=== PATIENT | female | born 1975 | race Caucasian/White ===

== ENCOUNTER → 2019-03-21 | Outpatient (CLI) | payer OTHER ==
[2015-04-19 14:00] VITALS: BP 113/89
[~2019-03-21] MED LIST: ALPR0.5T PO; AZAT50TA20 PO; MESA1.2T PO; MONT10TA6 PO; [UNRECOGNIZED DRUG - OTHER]
--- NOTE | 2019-03-21 14:46 | RAD ---
DATE: 03/21/2019 EXAM: MAMMO ABEL SCREENING BILATERAL HISTORY: Routine screening COMPARISON: None. This exam is the baseline. This study was interpreted with the benefit of Computerized Aided Detection (CAD). Breast Density: DENSE The breast parenchyma is dense, which could reduce the sensitivity of mammography. Breast parenchyma level density D. FINDINGS: Nodular asymmetry involving the posterior right MLO tomosynthesis images approximately 6.7 cm from nipple is present and this measures 0.7 cm in diameter. It is not well delineated on the standard MLO projection. Asymmetry which is nodular in appearance involves the left axillary level on the MLO projection and this measures up to 0 point for 5 cm diameter. It is seen on tomosynthesis imaging but not definitely on the standard MLO view. It may represent intramammary lymph node. IMPRESSION: Bilateral nodular asymmetry. Spot compression imaging bilaterally is recommended in the MLO projections with tomosynthesis. Ultrasound bilaterally may be needed. BI-RADS CATEGORY: 0 INCOMPLETE: NEEDS ADDITIONAL IMAGING EVALUATION AND/OR PRIOR MAMMOGRAMS FOR COMPARISON. RECOMMENDED FOLLOW-UP: ADD ADDITIONAL IMAGING PQRS compliance statement: Patient information was entered into a reminder system with a target due date of now for the next mammogram. Mammography is a sensitive method for finding small breast cancers, but it does not detect them all and is not a substitute for careful clinical examination. A negative mammogram does not negate a clinically suspicious finding and should not result in delay in biopsying a clinically suspicious abnormality. "Our facility is accredited by the [employer] Mammography [employer]."
== END | disposition home or self-care (01) ==
LOC: PMG 13:16
PROVIDERS: ATTEND Physician Assistant Medical
DX: Z12.31 Encounter for screening mammogram for malignant neoplasm of breast (principal); N64.89 Other specified disorders of breast
CPT/HCPCS: 77063; 77067

== ENCOUNTER → 2019-03-25 | Outpatient (CLI) | payer OTHER ==
[2015-04-19 14:00] VITALS: BP 113/89
--- NOTE | 2019-03-25 15:47 | RAD ---
DATE: 03/25/2019 EXAM: DIGITAL DIAGNOSTIC BILATERAL, BREAST BILATERAL HISTORY: Suspicious screening study COMPARISON: 03/21/2019 This study was interpreted with the benefit of Computerized Aided Detection (CAD). Breast Density: DENSE The breast parenchyma is dense, which could reduce the sensitivity of mammography. Breast parenchyma level density D. FINDINGS: Additional spot compression oblique views of both breasts were obtained and correlated with the screening exam. This patient's fibroglandular tissues are quite dense and heterogeneous isn't a multinodular pattern. Possible small nodules in the superior aspects of both breasts noted on the screening exam are again visualized on the spot compression views, however, overlying dense fibroglandular tissues continue to partially obscure these nodules. Bilateral breast ultrasound, 03/25/2019: A targeted ultrasound exam of the superior aspects of both breasts was performed. The fibroglandular tissues are heterogeneous. On the right, at the 9:00 location, approximately 7 cm from the nipple there is a small septated cyst versus cyst cluster. It measures 10 x 7 x 5 mm. No other sonographic abnormality is seen superiorly on the right. On the left, at the 9:00 location approximately 4 cm from the nipple, a 5 x 7 mm anechoic nodule is seen with faint posterior acoustic enhancement. This has the appearance of a small cyst. At the 2:00 location on the left, approximately 4 cm from the nipple there is a 4 mm hypoechoic nodule. It is wider than tall. Its margins are less clearly defined. No definite posterior acoustic enhancement or shadowing is seen. This may represent a complicated cyst or small fibroadenoma. No other abnormality was seen superiorly in the left breast. IMPRESSION: 1. The patient's fibroglandular tissues are generally heterogeneous and multinodular. 2. Targeted ultrasound exam of the superior aspects of both breasts demonstrates several probably benign nodules as described above. It is unclear whether these correspond to the poorly defined areas of nodularity seen on the mammograms. 3. Mammographic and sonographic surveillance beginning in 6 months is suggested. BI-RADS CATEGORY: 3 PROBABLY BENIGN FINDING(S)-SHORT INTERVAL FOLLOW-UP SUGGESTED RECOMMENDED FOLLOW-UP: 6M 6 MONTH FOLLOW-UP PQRS compliance statement: Patient information was entered into a reminder system with a target due date for the next mammogram. Mammography is a sensitive method for finding small breast cancers, but it does not detect them all and is not a substitute for careful clinical examination. A negative mammogram does not negate a clinically suspicious finding and should not result in delay in biopsying a clinically suspicious abnormality. "Our facility is accredited by the [employer] Mammography Program."
== END | disposition home or self-care (01) ==
LOC: MAMMO 13:34
PROVIDERS: ATTEND Physician Assistant Medical
DX: R92.8 Other abnormal and inconclusive findings on diagnostic imaging of breast (principal)
CPT/HCPCS: 76641; 77066

== ENCOUNTER → 2020-08-16 | Outpatient (CLI) | payer OTHER ==
[2015-04-19 14:00] VITALS: BP 113/89
[~2020-08-16] MED LIST changes: -MONT10TA6 PO; +MONT10TA80 PO
== END | disposition home or self-care (01) ==
LOC: LAB 17:06
PROVIDERS: ATTEND Internal Medicine Cardiovascular Disease
DX: R51 Headache (principal); R19.7 Diarrhea, unspecified; R11.2 Nausea with vomiting, unspecified; Z20.828 Contact with and (suspected) exposure to other viral communicable diseases
CPT/HCPCS: U0003-CS

== ENCOUNTER 2021-09-07 17:49 | Emergency (ER) | payer OTHER ==
[~2021-09-07] VITALS: Ht 162.6 cm; Wt 68.1 kg
--- NOTE | 2021-09-07 18:26 | PHYS DOC ---
Past History Past Medical History: IBS Past Surgical History: No Surgical History Alcohol Use: None Drug Use: None Adult General Chief Complaint Chief Complaint: NOSEBLEED HPI HPI Patient is a 46-year-old female that presents with a chief complaint of nosebleed. States she gets them occasionally but they usually stop. States she had one this morning that lasted for several minutes and then stopped. States this was been going for about 30 minutes now. States it has been slowly drifting with no gushes. Denies any recent traumas, travels, illnesses, fever, neck pain, chest pain, shortness of breath or abdominal pain, nausea, vomiting. Denies any use of anticoagulation. Denies any known personal or family history of coagulopathy. Review of Systems Review of Systems Review of systems otherwise unremarkable except noted in HPI Allergies Allergies Allergies Coded Allergies Type Severity Reaction Last Updated Verified No Known Drug Allergies 01/22/14 No Physical Exam Physical Exam Constitutional: Well developed, well nourished, no acute distress, non-toxic appearance. [] HENT: Normocephalic, atraumatic, bilateral external ears normal, oropharynx moist, no oral exudates, external nose normal, appears to have a right sided anterior epistaxis. [] Eyes: conjunctiva normal, no discharge. [] Neck: Normal range of motion, no tenderness, supple, no stridor. [] Cardiovascular:Heart rate regular rhythm, no murmur [] Lungs & Thorax: Bilateral breath sounds clear to auscultation [] Neurologic: Alert and oriented X 3, normal motor function, normal sensory function, no focal deficits noted. [] Psychologic: Affect normal, judgement normal, mood normal. [] EKG EKG [] Radiology/Procedures Radiology/Procedures [] Heart Score C/O Chest Pain: No Risk Factors: Risk Factors: DM, Current or recent (<one month) smoker, HTN, HLP, family history of CAD, obesity. Risk Scores: Risk Factors: DM, Current or recent (<one month) smoker, HTN, HLP, family history of CAD, obesity. Course & Med Decision Making Course & Med Decision Making Patient is a 46-year-old female who presents with epistaxis Vital signs not concerning. Physical exam noted above. Appears to have a right-sided anterior epistaxis. Bleeding controlled with Afrin and pressure. Discussed all findings with patient. Advised on symptom management at home. Advised to follow-up with primary care physician in the morning. Gave return precautions to the ED. Patient grateful, verbalized understanding and agreed with plan of discharge. Dragon Disclaimer Dragon Disclaimer This electronic medical record was generated, in whole or in part, using a voice recognition dictation system. Departure Departure: Impression: Primary Impression: Epistaxis Disposition: HOME / SELF CARE / HOMELESS Condition: GOOD Referrals: WILLIAM ORTIZ (PCP) Patient Instructions: Nosebleed Additional Instructions: Thank you for coming into the emergency department tonight and allowing us to take care of you. Please read the attached information carefully to go back over some of the things we discussed. Please contact your primary care physician in the morning to update on your ED visit and set up a follow-up as needed. Please come back with new or concerning symptoms as we discussed. IVAN EM MD Sep 07, 2021 18:26
[2021-09-07 18:38] VITALS: BP 141/96
[2021-09-07] MEDS ORDERED: OXYMETAZOLINE 0.05% NASAL SPRAY 30ML BOTTLE. NS ONE (18:45)
== END 2021-09-07 20:09 | disposition home or self-care (01) ==
LOC: ER 17:49
DX: R04.0 Epistaxis (principal)
CPT/HCPCS: 99283